=== PATIENT | female | born 1980 | race Caucasian/White ===

== ENCOUNTER 2022-04-15 00:33 | Emergency (ER) | payer SELFPAY ==
[~2022-04-15] VITALS: Ht 162.6 cm; Wt 86.0 kg
[2022-04-15] MEDS ORDERED: IBUPROFEN 600MG TABLET PO STA (04:01)
[2022-04-15 05:01] VITALS: BP 118/78
[2022-04-15] MEDS ORDERED: NAPR-681 PO (05:19)
== END 2022-04-15 05:30 | disposition home or self-care (01) ==
LOC: ER 00:33
DX: S80.01XA Contusion of right knee, initial encounter (principal); S00.83XA Contusion of other part of head, initial encounter; M25.532 Pain in left wrist; W01.0XXA Fall on same level from slipping, tripping and stumbling without subsequent striking against object, initial encounter; Y93.89 Activity, other specified; Y92.89 Other specified places as the place of occurrence of the external cause; Y99.8 Other external cause status
CPT/HCPCS: 73110; 81025; 99283